=== PATIENT | male | born 1975 | race Hispanic/Latino ===

== ENCOUNTER → 2022-07-25 | Outpatient (CLI) | payer OTHER ==
[2022-07-25 11:08] LABS: BASOPHILS % (AUTO) 0.7 % (0.0-5.0); EOSINOPHILS % (AUTO) 2.8 % (0.0-8.0); HEMATOCRIT 44.8 % (42-54); LYMPHOCYTES % (AUTO) 20.1 % (21.0-51.0); MEAN CORPUSCULAR HEMOGLOBIN 30.2 pg (27.0-33.0); MEAN CORPUSCULAR HGB CONC 33.7 g/dL (32.0-36.0); MEAN CORPUSCULAR VOLUME 89.6 fL (79-99); MONOCYTES % (AUTO) 10.1 % (3.0-13.0); NEUTROPHILS % (AUTO) 64.3 % (40.0-77.0); PLATELET COUNT (AUTO) 306 K/uL (130-400); RED CELL DISTRIBUTION WIDTH 13.2 % (11.0-15.5)
[2022-07-25 11:25] LABS: ALBUMIN 3.6 g/dL (3.5-5.0); CREATININE 0.8 mg/dL (0.5-1.5); POTASSIUM 4.8 mmol/L (3.5-5.1); TOTAL PROTEIN, SERUM 7.7 g/dL (6.0-8.3)
== END | disposition home or self-care (01) ==
LOC: LAB 10:05
PROVIDERS: ATTEND Internal Medicine Gastroenterology
DX: R93.2 Abnormal findings on diagnostic imaging of liver and biliary tract (principal)
CPT/HCPCS: 36415; 80053; 85025

== ENCOUNTER → 2022-07-28 | Outpatient (CLI) | payer OTHER | END | disposition home or self-care (01) | LOC: RAH 06:39 | PROVIDERS: ATTEND Internal Medicine Gastroenterology | DX: R10.13 Epigastric pain (principal) | CPT/HCPCS: 78264; A9541 ==

== ENCOUNTER → 2022-10-23 | Outpatient (CLI) | payer OTHER ==
[~2022-10-23] MED LIST: IOHEXOL-350 75 ML VIAL IV ONE
== END | disposition home or self-care (01) ==
LOC: EDUNIT# 08-01 10:00 → RAH 09:35
PROVIDERS: ATTEND Internal Medicine Gastroenterology
DX: K76.0 Fatty (change of) liver, not elsewhere classified (principal); R93.2 Abnormal findings on diagnostic imaging of liver and biliary tract; N32.89 Other specified disorders of bladder; M47.815 Spondylosis without myelopathy or radiculopathy, thoracolumbar region
CPT/HCPCS: 74170; Q9967; 74178